=== PATIENT | female | born 1960 | race African-American/Black ===

== ENCOUNTER 2020-12-20 13:56 | Emergency (ER) | payer OTHER, SELFPAY ==
[2020-12-20] MEDS ORDERED: Bacitracin 1 PK ONE (15:02)
[2020-12-20] MEDS ORDERED: Boostrix 0.5 ML (Tdap) VIAL ONE ×2 (15:02→15:09)
== END 2020-12-20 15:10 | disposition home or self-care (01) ==
LOC: MADERS 13:56
DX: S51.851A Open bite of right forearm, initial encounter (principal); W54.0XXA Bitten by dog, initial encounter
CPT/HCPCS: 90471; 90715

== ENCOUNTER 2022-10-09 09:50 | Outpatient (CLI) | payer OTHER | END 2022-10-09 09:51 | disposition home or self-care (01) | LOC: MADRAD 09:50 | PROVIDERS: ATTEND Nurse Practitioner Family | DX: M25.561 Pain in right knee (principal); M17.11 Unilateral primary osteoarthritis, right knee; M25.461 Effusion, right knee ==

== ENCOUNTER 2023-07-31 17:56 | Emergency (ER) | payer SELFPAY, OTHER ==
[2023-07-31] MEDS ORDERED: Ibuprofen 800 MG TAB ONE (18:49)
== END 2023-07-31 18:51 | disposition home or self-care (01) ==
LOC: MADERS 17:56
DX: S83.91XA Sprain of unspecified site of right knee, initial encounter (principal); M62.831 Muscle spasm of calf; W54.1XXA Struck by dog, initial encounter